=== PATIENT | female | born 1955 | race African-American/Black ===

== ENCOUNTER 2016-11-27 15:15 | Emergency (ER) | payer OTHER ==
[~2016-11-27] VITALS: Ht 165.1 cm; Wt 84.1 kg
[~2016-11-27 15:15] MED LIST: ACYC800T PO; AMLO5TAB66 PO; EFAV1TAB2 PO; HYDR25TA PO; LISI-662 PO; MULT-950 PO
[2016-11-27] MEDS ORDERED: KETOROLAC TROMETHAMINE 30 MG/ML VIAL IM ONE (18:15)
[2016-11-27 18:24] VITALS: BP 121/74
== END 2016-11-27 19:17 | disposition home or self-care (01) ==
LOC: EMS 15:16
DX: S93.402A Sprain of unspecified ligament of left ankle, initial encounter (principal); I10 Essential (primary) hypertension; Z88.5 Allergy status to narcotic agent; Z88.0 Allergy status to penicillin; X58.XXXA Exposure to other specified factors, initial encounter; Y93.01 Activity, walking, marching and hiking; Y92.89 Other specified places as the place of occurrence of the external cause; Y99.8 Other external cause status
CPT/HCPCS: 73610; 96372; 99284; J1885

== ENCOUNTER 2017-04-05 13:01 | Emergency (ER) | payer OTHER ==
[~2017-04-05] VITALS: Ht 162.6 cm; Wt 77.3 kg
[~2017-04-05 13:01] MED LIST changes: -EFAV1TAB2 PO
[2017-04-05] MEDS ORDERED: DOLU10TA PO (13:14)
[2017-04-05] MEDS ORDERED: EMTR1TAB13 PO (13:14)
[2017-04-05] MEDS ORDERED: KETOROLAC TROMETHAMINE 60 MG/2 ML VIAL IM ONE (13:30)
[2017-04-05] MEDS ORDERED: CARISOPRODOL 350 MG TABLET PO ONE (13:30)
[2017-04-05 15:33] VITALS: BP 118/74
== END 2017-04-05 15:36 | disposition home or self-care (01) ==
LOC: EMS 13:02
DX: S23.3XXA Sprain of ligaments of thoracic spine, initial encounter (principal); M62.830 Muscle spasm of back; I10 Essential (primary) hypertension; Z88.0 Allergy status to penicillin; Z88.5 Allergy status to narcotic agent; V09.9XXA Pedestrian injured in unspecified transport accident, initial encounter; Y93.89 Activity, other specified; Y92.89 Other specified places as the place of occurrence of the external cause; Y99.8 Other external cause status
CPT/HCPCS: 96372; 99283; J1885

== ENCOUNTER 2017-05-12 09:22 | Emergency (ER) | payer OTHER ==
[~2017-05-12] VITALS: Ht 162.6 cm; Wt 86.4 kg
[~2017-05-12 09:22] MED LIST changes: -ACYC800T PO; +DOLU10TA PO; +EMTR1TAB13 PO
[2017-05-12] MEDS ORDERED: CYCL10 PO (09:35)
[2017-05-12] MEDS ORDERED: ACYC200C PO (09:35)
[2017-05-12] MEDS ORDERED: HYDROCODONE/ACETAMINOPHEN 5-325 MG TABLET PO ONE (10:30)
[2017-05-12] MEDS ORDERED: KETOROLAC TROMETHAMINE 30 MG/ML VIAL IM ONE (10:45)
[2017-05-12 11:00] VITALS: BP 130/75
== END 2017-05-12 11:21 | disposition home or self-care (01) ==
LOC: EMS 09:23
DX: D17.0 Benign lipomatous neoplasm of skin and subcutaneous tissue of head, face and neck (principal); I10 Essential (primary) hypertension; Z21 Asymptomatic human immunodeficiency virus [HIV] infection status; Z88.0 Allergy status to penicillin; Z88.6 Allergy status to analgesic agent
CPT/HCPCS: 96372; 99283; J1885

== ENCOUNTER 2018-02-03 14:40 | Emergency (ER) | payer OTHER ==
[~2018-02-03] VITALS: Ht 162.6 cm; Wt 79.5 kg
[~2018-02-03 14:40] MED LIST changes: +ACYC200C PO; +CYCL10 PO
[2018-02-03] MEDS ORDERED: KETOROLAC TROMETHAMINE 60 MG/2 ML VIAL IM ONE (17:45)
[2018-02-03] MEDS ORDERED: METHOCARBAMOL 500 MG TABLET PO ONE (17:45)
[2018-02-03 17:53] VITALS: BP 124/89
== END 2018-02-03 18:38 | disposition home or self-care (01) ==
LOC: EMS 14:44
DX: G89.29 Other chronic pain (principal); M54.5 Low back pain; I10 Essential (primary) hypertension; Z88.0 Allergy status to penicillin; Z88.5 Allergy status to narcotic agent; Z79.899 Other long term (current) drug therapy
CPT/HCPCS: 96372; 99283; J1885

== ENCOUNTER 2018-02-05 13:58 | Emergency (ER) | payer OTHER ==
[~2018-02-05] VITALS: Ht 162.6 cm; Wt 81.5 kg
[2018-02-05] MEDS ORDERED: MET750 PO (14:08)
[2018-02-05] MEDS ORDERED: CYCLOBENZAPRINE HCL 10 MG TABLET PO ONE (16:30)
[2018-02-05] MEDS ORDERED: KETOROLAC TROMETHAMINE 60 MG/2 ML VIAL IM ONE (16:30)
[2018-02-05 16:35] LABS: APPEARANCE,URINE CLEAR (CLEAR); BILIRUBIN,URINE NEGATIVE (NEGATIVE); GLUCOSE, URINE (UA) NEGATIVE (NEGATIVE); KETONES,URINE NEGATIVE (NEGATIVE); LEUKOCYTE ESTERASE ,URINE NEGATIVE (NEGATIVE); NITRATE,URINE NEGATIVE (NEGATIVE); OCCULT BLOOD,URINE NEGATIVE (NEGATIVE); PH,URINE 5.5 (5.0-8.0); PROTEIN,URINE NEGATIVE (NEGATIVE); UROBILINOGEN,URINE 0.2 mg/dL (<=1.0)
[2018-02-05 17:37] VITALS: BP 136/79
== END 2018-02-05 17:38 | disposition home or self-care (01) ==
LOC: EMS 13:59
DX: M54.5 Low back pain (principal); I10 Essential (primary) hypertension; Z88.0 Allergy status to penicillin; Z88.5 Allergy status to narcotic agent
CPT/HCPCS: 81003; 96372; 99283; J1885

== ENCOUNTER 2019-04-11 19:47 | Emergency (ER) | payer OTHER ==
[~2019-04-11] VITALS: Ht 162.6 cm; Wt 77.3 kg
[~2019-04-11 19:47] MED LIST changes: +METH750T4 PO
[2019-04-11] MEDS ORDERED: CYCLOBENZAPRINE HCL 10 MG TABLET PO ONE (20:15)
[2019-04-11] MEDS ORDERED: KETOROLAC TROMETHAMINE 60 MG/2 ML VIAL IM ONE (20:15)
[2019-04-11] MEDS ORDERED: BACLOFEN 10 MG TABLET PO ONE (20:15)
[2019-04-11] MEDS ORDERED: ASPI81 PO (20:16)
[2019-04-11] MEDS ORDERED: HYDR25TA PO (20:16)
[2019-04-11 21:37] VITALS: BP 111/72
== END 2019-04-11 21:45 | disposition home or self-care (01) ==
LOC: EMS 19:48
DX: S76.012A Strain of muscle, fascia and tendon of left hip, initial encounter (principal); G89.29 Other chronic pain; I10 Essential (primary) hypertension; Z88.0 Allergy status to penicillin; Z88.5 Allergy status to narcotic agent; Z79.899 Other long term (current) drug therapy; Z79.82 Long term (current) use of aspirin; W21.05XA Struck by basketball, initial encounter; Y93.67 Activity, basketball; Y92.89 Other specified places as the place of occurrence of the external cause; Y99.8 Other external cause status
CPT/HCPCS: 96372; 99283; J1885

== ENCOUNTER 2022-11-08 12:52 | Emergency (ER) | payer BC, OTHER ==
[~2022-11-08] VITALS: Ht 162.6 cm; Wt 78.2 kg
[~2022-11-08 12:52] MED LIST changes: -ACYC200C PO; +ASPI-1450 PO; -CYCL10 PO; +HYDR25TA2 PO; -LISI-662 PO; +LISI-894 PO; -METH750T4 PO; -MULT-950 PO
[2022-11-08] MEDS ORDERED: METF-1211 PO (15:37)
[2022-11-08] MEDS ORDERED: ACYC-138 PO (15:37)
[2022-11-08] MEDS ORDERED: AMLO10TA55 PO (15:37)
[2022-11-08] MEDS ORDERED: HYDROCODONE/ACETAMINOPHEN 5-325 MG TABLET PO ONE (15:45)
[2022-11-08] MEDS ORDERED: KETOROLAC TROMETHAMINE 30 MG/ML VIAL IM ONE (15:45)
[2022-11-08] MEDS ORDERED: LIDOCAINE 5% TRANSDERMAL PATCH TD ONE (15:45)
[2022-11-08 17:15] VITALS: BP 124/75
[2022-11-08] MEDS ORDERED: CYCL-448 PO (17:35)
[2022-11-08] MEDS ORDERED: LIDO700A15 TP (17:35)
== END 2022-11-08 17:47 | disposition home or self-care (01) ==
LOC: EMS 13:01
DX: M19.90 Unspecified osteoarthritis, unspecified site (principal); M25.552 Pain in left hip; I10 Essential (primary) hypertension; G89.29 Other chronic pain; M54.9 Dorsalgia, unspecified; Z90.49 Acquired absence of other specified parts of digestive tract; Z98.890 Other specified postprocedural states
CPT/HCPCS: 99283; 73503; 96372; J1885

== ENCOUNTER 2023-02-13 14:30 | Emergency (ER) | payer MEDICARE, OTHER ==
[~2023-02-13] VITALS: Ht 162.6 cm; Wt 79.5 kg
[~2023-02-13 14:30] MED LIST changes: +ACYC-138 PO; +AMLO10TA55 PO; -AMLO5TAB66 PO; +CYCL-448 PO; -HYDR25TA2 PO; +LIDO700A15 TP; +METF-1211 PO
[2023-02-13 14:36] VITALS: TEMP 98
[2023-02-13] MEDS ORDERED: CLIN-26 PO (14:37)
[2023-02-13] MEDS ORDERED: KETOROLAC TROMETHAMINE 30 MG/ML VIAL IM ONE (16:30)
[2023-02-13] MEDS ORDERED: IBUP-1492 PO (17:45)
[2023-02-13 17:53] VITALS: BP 114/79; PULSE 84; RESP 16
== END 2023-02-13 19:06 | disposition home or self-care (01) ==
LOC: EMS 14:35
DX: M17.11 Unilateral primary osteoarthritis, right knee (principal); I10 Essential (primary) hypertension; G89.29 Other chronic pain; M54.9 Dorsalgia, unspecified; Z90.49 Acquired absence of other specified parts of digestive tract; Z88.0 Allergy status to penicillin; Z88.5 Allergy status to narcotic agent
CPT/HCPCS: 99283; 73562; 96372; J1885

== ENCOUNTER 2023-05-14 11:25 | Emergency (ER) | payer MEDICARE, OTHER ==
[~2023-05-14] VITALS: Ht 162.6 cm; Wt 63.6 kg
[~2023-05-14 11:25] MED LIST changes: +CLIN-26 PO; -CYCL-448 PO; +IBUP-1492 PO
[2023-05-14 11:30] VITALS: BP 132/78; PULSE 88; RESP 18; TEMP 98.6
[2023-05-14] MEDS ORDERED: HYDR25TA2 PO (11:31)
[2023-05-14] MEDS ORDERED: KETOROLAC TROMETHAMINE 30 MG/ML VIAL IM ONE (12:45)
[2023-05-14] MEDS ORDERED: IBUP-1492 PO (17:15)
== END 2023-05-14 17:28 | disposition home or self-care (01) ==
LOC: EMS 11:42
DX: M19.90 Unspecified osteoarthritis, unspecified site (principal); G89.29 Other chronic pain; M54.9 Dorsalgia, unspecified; Z90.49 Acquired absence of other specified parts of digestive tract; Z98.890 Other specified postprocedural states; Z88.0 Allergy status to penicillin; Z88.5 Allergy status to narcotic agent
CPT/HCPCS: 99283; 73562; 96372; J1885

== ENCOUNTER 2023-11-18 22:38 | Emergency (ER) | payer MEDICARE, OTHER ==
[~2023-11-18] VITALS: Ht 163.8 cm; Wt 81.0 kg
[~2023-11-18 22:38] MED LIST changes: -CLIN-26 PO; +HYDR25TA2 PO; -LIDO700A15 TP
[2023-11-18 22:43] VITALS: TEMP 97.9
[2023-11-18 23:01] LABS: GLUCOMETER DEV NAME(LOC) ER.6; GLUCOSE,POINT OF CARE 129 MG/DL (70-110)
[2023-11-18] MEDS: SODIUM CHLORIDE 0.9% 1,000 ML IV ONE (23:48)
[2023-11-18 23:56] LABS: BASOPHILS % (AUTO) 0.4 % (0.0-2.0); EOSINOPHILS % (AUTO) 1.4 % (1.0-6.0); HEMATOCRIT 37.4 % (36-46); HEMOGLOBIN 12.6 g/dL (12.0-16.0); LYMPHOCYTES # (AUTO) 4.3 K/uL (1.0-4.8); LYMPHOCYTES % (AUTO) 41.7 % (22.0-44.0); MEAN CORPUSCULAR HEMOGLOBIN 32.8 pg (26.0-34.0); MEAN CORPUSCULAR HGB CONC 33.6 G/dL (31.0-37.0); MEAN CORPUSCULAR VOLUME 98 fL (80-100); MONOCYTES # (AUTO) 0.8 K/uL (0.1-1.0); MONOCYTES % (AUTO) 8.1 % (2.0-9.0); NEUTROPHILS % (AUTO) 48.4 % (40.0-70.0); PLATELET COUNT (AUTO) 365 K/uL (150-450); RED BLOOD CELL COUNT(AUTO) 3.82 MIL/uL (4.00-5.20); RED CELL DISTRIBUTION WIDTH 12.9 % (11.5-14.5); WHITE BLOOD COUNT (AUTO) 10.4 K/uL (4.5-11.0)
[2023-11-19 00:10] LABS: ANION GAP 10 mmol/L (8-16); CALCIUM, TOTAL 9.5 mg/dL (8.8-10.5); CARBON DIOXIDE 28 mmol/L (22-29); CHLORIDE 102 mmol/L (98-107); CREATININE 0.91 mg/dL (0.60-1.30); GLOMERULAR FILTR. RATE CALC > 60 mL/min (>60); GLUCOSE,RANDOM 105 mg/dL (70-110); POTASSIUM 3.3 mmol/L (3.5-5.1); SODIUM SERUM 140 mmol/L (136-145); UREA NITROGEN, BLOOD 17 mg/dL (7-18)
[2023-11-19 00:16] LABS: B-TYPE NATRIURETIC PEPTIDE 6 pg/mL (0-100); TROPONIN I-HIGH SENSITIVITY 10 ng/L (<51)
[2023-11-19 00:30] LABS: ALANINE AMINOTRANSFERASE 18 U/L (12-78); ALBUMIN 3.7 g/dL (3.4-5.0); ALKALINE PHOSPHATASE 61 U/L (46-116); ASPARTATE AMINOTRANSFERASE 17 U/L (15-37); BILIRUBIN,TOTAL 0.4 mg/dL (0.1-1.0); CREATINE KINASE, TOTAL ONLY 194 U/L (26-192); TOTAL PROTEIN, SERUM 7.5 g/dL (6.4-8.2)
[2023-11-19 02:07] LABS: APPEARANCE,URINE CLEAR (CLEAR); BILIRUBIN,URINE NEGATIVE (NEGATIVE); COLOR,URINE COLORLESS (YELLOW); GLUCOSE, URINE (UA) NEGATIVE (NEGATIVE); KETONES,URINE NEGATIVE (NEGATIVE); LEUKOCYTE ESTERASE ,URINE NEGATIVE (NEGATIVE); NITRATE,URINE NEGATIVE (NEGATIVE); OCCULT BLOOD,URINE NEGATIVE (NEGATIVE); PH,URINE 6.5 (5.0-8.0); PROTEIN,URINE NEGATIVE (NEGATIVE); SPECIFIC GRAVITIY, URINE 1.009 (1.003-1.030); UROBILINOGEN,URINE <=1.0 mg/dL (<=1.0)
[2023-11-19 05:00] VITALS: BP 130/68; PULSE 78; RESP 16
== END 2023-11-19 05:53 | disposition home or self-care (01) ==
LOC: EMS 22:39
DX: R42 Dizziness and giddiness (principal); I10 Essential (primary) hypertension; Z90.49 Acquired absence of other specified parts of digestive tract; Z88.0 Allergy status to penicillin; Z88.5 Allergy status to narcotic agent; Z98.890 Other specified postprocedural states
CPT/HCPCS: 70450; 71045; 80053; 81003; 82550; 82962; 83880; 84484; 85025; 93005; 96360; 99285; 36415-L1; 36415-TC

== ENCOUNTER 2025-01-10 13:43 | Emergency (ER) | payer MEDICARE, OTHER ==
[~2025-01-10] VITALS: Ht 162.6 cm; Wt 72.7 kg
[2025-01-10 14:03] VITALS: TEMP 98.6
[2025-01-10 14:29] VITALS: BP 140/88; PULSE 101; RESP 18; O2SAT 100
== END 2025-01-10 15:20 | disposition left against medical advice (07) ==
LOC: EMS 15:07
DX: R42 Dizziness and giddiness (principal); I10 Essential (primary) hypertension; Z79.82 Long term (current) use of aspirin; Z79.84 Long term (current) use of oral hypoglycemic drugs; Z88.0 Allergy status to penicillin; Z88.5 Allergy status to narcotic agent; Z90.49 Acquired absence of other specified parts of digestive tract; Z79.899 Other long term (current) drug therapy
CPT/HCPCS: 71045; 93005; 99283

== ENCOUNTER 2025-04-24 12:58 | Emergency (ER) | payer OTHER ==
[~2025-04-24] VITALS: Ht 162.6 cm; Wt 77.0 kg
[2025-04-24 13:31] VITALS: BP 104/83; PULSE 91; RESP 18; TEMP 97.9; O2SAT 100
[2025-04-24] MEDS: OxyCODONE HCL/ACETAMINOPHEN 5-325 MG TABLET PO ONE (15:03)
[2025-04-24] MEDS: KETOROLAC TROMETHAMINE 60 MG/2 ML VIAL IM ONE (15:03)
[2025-04-24] MEDS ORDERED: IBUP-1492 PO (15:15)
[2025-04-24] MEDS ORDERED: PERCT PO ×2 (15:15→15:30)
[2025-04-25] MEDS ORDERED: PERCT PO (18:45)
== END 2025-04-24 16:11 | disposition home or self-care (01) ==
LOC: EMS 12:59
DX: S66.912A Strain of unspecified muscle, fascia and tendon at wrist and hand level, left hand, initial encounter (principal); I10 Essential (primary) hypertension; M19.90 Unspecified osteoarthritis, unspecified site; G89.29 Other chronic pain; Z88.5 Allergy status to narcotic agent; Z79.82 Long term (current) use of aspirin; Z79.899 Other long term (current) drug therapy; Z88.0 Allergy status to penicillin; Z90.49 Acquired absence of other specified parts of digestive tract; Z79.624 Long term (current) use of inhibitors of nucleotide synthesis; W50.0XXA Accidental hit or strike by another person, initial encounter; Y93.89 Activity, other specified; Y92.89 Other specified places as the place of occurrence of the external cause; Y99.8 Other external cause status
CPT/HCPCS: 99283; 73110; 29125; 96372; J1885

== ENCOUNTER 2025-04-25 16:59 | Emergency (ER) | payer OTHER ==
[~2025-04-25] VITALS: Ht 165.1 cm; Wt 81.8 kg
[~2025-04-25 16:59] MED LIST changes: +PERCT PO
[2025-04-25] MEDS: KETOROLAC TROMETHAMINE 30 MG/ML VIAL IM ONE (17:49)
[2025-04-25] MEDS: OxyCODONE HCL/ACETAMINOPHEN 5-325 MG TABLET PO ONE (17:49)
[2025-04-25] MEDS ORDERED: PERCT PO (18:45)
[2025-04-25 19:15] VITALS: BP 149/77; PULSE 77; RESP 22; TEMP 97.9; O2SAT 99
== END 2025-04-25 19:17 | disposition home or self-care (01) ==
LOC: EMS 16:59
DX: S66.912A Strain of unspecified muscle, fascia and tendon at wrist and hand level, left hand, initial encounter (principal); I10 Essential (primary) hypertension; G89.29 Other chronic pain; M19.90 Unspecified osteoarthritis, unspecified site; Z88.5 Allergy status to narcotic agent; Z79.624 Long term (current) use of inhibitors of nucleotide synthesis; Z79.82 Long term (current) use of aspirin; Z79.899 Other long term (current) drug therapy; Z88.0 Allergy status to penicillin; Z90.49 Acquired absence of other specified parts of digestive tract; X58.XXXA Exposure to other specified factors, initial encounter; Y93.89 Activity, other specified; Y92.89 Other specified places as the place of occurrence of the external cause; Y99.8 Other external cause status
CPT/HCPCS: 99283; 96372; J1885